=== PATIENT | male | born 1985 | race Caucasian/White ===

== ENCOUNTER 2024-02-05 14:40 | Emergency (ER) | payer OTHER ==
[~2024-02-05] VITALS: Ht 175.3 cm; Wt 96.8 kg
[2024-02-05] MEDS ORDERED: Ketorolac 30 MG/ML VIAL IV ONE (14:45)
[2024-02-05] MEDS ORDERED: NS 1,000 ML IV ONE (14:45)
[2024-02-05 15:02] LABS: BASO # 0.02 K/mm3 (0.02-0.10); EOS # 0.11 K/mm3 (0.04-0.40); EOS % 1.5 % (0.0-4.0); HEMATOCRIT 40.3 % (42.0-52.0); LYMPH# 1.84 K/mm3 (1.50-4.00); MEAN CELL VOLUME 88 fl (78-100); MEAN CORPUSCULAR HEMOGLOBIN 31 pg (27-31); MEAN CORPUSCULAR HGB CONC 35 g/dL (33-37); MEAN PLATELET VOLUME 10.6 fl (7.4-10.4); MONO # 0.38 K/mm3 (0.20-0.80); NEU # 5.22 K/mm3 (1.40-6.50); PLATELET COUNT 327 K/mm3 (130-400); RED BLOOD COUNT 4.59 M/mm3 (4.20-5.60); RED CELL DISTRIBUTION WIDTH 11.9 % (11.5-14.5); WHITE BLOOD COUNT 7.6 K/mm3 (4.8-10.8)
[2024-02-05 15:09] LABS: ALBUMIN 4.6 g/dL (3.5-5.0); SODIUM 141 mmol/L (136-145)
[2024-02-05 15:10] LABS: CALCIUM 9.6 mg/dL (8.3-10.5)
[2024-02-05 15:11] LABS: GLUCOSE 93 mg/dL (75-110); TOTAL PROTEIN 7.5 g/dL (6.4-8.3)
[2024-02-05 15:13] LABS: CARBON DIOXIDE 23 mmol/L (22-29); TOTAL BILIRUBIN 0.4 mg/dL (0.2-1.2)
[2024-02-05 15:17] LABS: AST-SGOT 14 U/L (5-34)
[2024-02-05 15:18] LABS: ALT/SGPT 19 U/L (0-55)
[2024-02-05 15:28] LABS: TROPONIN-I < 0.030 ng/mL (0.00-0.033)
[2024-02-05] MEDS ORDERED: Orphenadrine 60 MG/2ML AMP IV ONE (16:45)
[2024-02-05 16:48] VITALS: BP 146/94
== END 2024-02-05 16:55 | disposition home or self-care (01) ==
LOC: ED 14:40
PROVIDERS: Family Medicine
DX: R07.89 Other chest pain (principal); F17.290 Nicotine dependence, other tobacco product, uncomplicated
CPT/HCPCS: 90715; J1885; J2360; J7030